=== PATIENT | male | born 1945 | race Caucasian/White ===

== ENCOUNTER 2018-12-16 09:23 | Emergency (ER) | payer OTHER ==
[2018-12-16 09:37] VITALS: TEMP 97.7
--- NOTE | 2018-12-16 10:47 | ED ---
General Adult HPI - General Chief complaint: Arrhythmia/Palpitations Stated complaint: Palpitations Time Seen by Provider: 12/16/18 09:54 Source: patient, RN notes reviewed Mode of arrival: ambulatory Limitations: no limitations - History of Present Illness Initial comments: Patient is a pleasant 73-year-old male presenting to the emergency Department w ith complaints of palpitations. Patient has a difficult time describing his symptoms. Patient states heart feels like it is caused or skipping. Patient states this has occurred since age 18 however has occurred more over the past week. Patient denies any chest discomfort or chest pain. Patient denies any dyspnea except for the fact that he may feel a tiny bit short of breath while the palpitation occurs. Patient states symptoms only last a second and then resolved. Patient states sometimes episodes occur several times and otherwise just once. - Related Data Home Medications Medication Instructions Recorded Confirmed Naproxen 500 mg PO DAILY 12/16/18 12/16/18 Allergies Allergy/AdvReac Type Severity Reaction Status Date / Time No Known Allergies Allergy Verified 12/16/18 09:56 Review of Systems ROS Statement: Those systems with pertinent positive or pertinent negative responses have been documented in the HPI. ROS Other: All systems not noted in ROS Statement are negative. Constitutional: Denies: fever Eyes: Denies: eye pain ENT: Denies: ear pain Respiratory: Denies: cough Cardiovascular: Reports: palpitations. Denies: chest pain Endocrine: Denies: fatigue Gastrointestinal: Denies: abdominal pain Genitourinary: Denies: dysuria Musculoskeletal: Denies: back pain Skin: Denies: rash Neurological: Denies: weakness Past Medical History Past Medical History: Diabetes Mellitus Additional Past Medical History / Comment(s): borderline DM History of Any Multi-Drug Resistant Organisms: None Reported Past Surgical History: Back Surgery Past Psychological History: No Psychological Hx Reported Smoking Status: Former smoker Past Alcohol Use History: None Reported Past Drug Use History: None Reported General Exam Limitations: no limitations General appearance: alert, in no apparent distress Head exam: Present: atraumatic Eye exam: Present: normal appearance, PERRL ENT exam: Present: normal oropharynx Neck exam: Present: normal inspection Respiratory exam: Present: normal lung sounds bilaterally Cardiovascular Exam: Present: regular rate, normal rhythm, other (Occasional extra beats) GI/Abdominal exam: Present: soft. Absent: tenderness Extremities exam: Present: normal inspection. Absent: pedal edema, calf tenderness Neurological exam: Present: alert Psychiatric exam: Present: normal affect, normal mood Skin exam: Present: normal color Course Vital Signs 12/16/18 12/16/18 09:32 10:41 Temperature 97.7 F Pulse Rate 84 Pulse Rate [ 75 Casting Sorter ] Respiratory 18 Rate Blood Pressure 151/85 O2 Sat by Pulse 99 Oximetry - Reevaluation(s) Reevaluation #1: 12/16/18 10:45 Patient does admit to symptoms been present when PVCs are seen on the monitor. EKG Findings - EKG Comments: EKG Findings:: Sinus rhythm at 81. MS 184. QRS 108. QT 366. QTc 425. Normal axis. Normal QRS. No acute ST change. PVCs are present. Medical Decision Making - Medical Decision Making Patient reevaluated and resting comfortably in bed. Patient updated on results and need for follow-up. - Lab Data Result diagrams: 12/16/18 10:02 12/16/18 10:02 Lab Results 12/16/18 12/16/18 12/16/18 Range/Units 10:02 10:02 10:02 WBC 5.4 (3.8-10.6) k/uL RBC 5.19 (4.30-5.90) m/uL Hgb 14.2 (13.0-17.5) gm/dL Hct 43.5 (39.0-53.0) % MCV 83.7 (80.0-100.0) fL MCH 27.4 (25.0-35.0) pg MCHC 32.7 (31.0-37.0) g/dL RDW 15.0 (11.5-15.5) % Plt Count 255 (150-450) k/uL Neutrophils % 78 % Lymphocytes % 13 % Monocytes % 6 % Eosinophils % 1 % Basophils % 1 % Neutrophils # 4.2 (1.3-7.7) k/uL Lymphocytes # 0.7 L (1.0-4.8) k/uL Monocytes # 0.3 (0-1.0) k/uL Eosinophils # 0.1 (0-0.7) k/uL Basophils # 0.0 (0-0.2) k/uL PT 10.9 (9.0-12.0) sec INR 1.0 (<1.2) APTT 24.9 (22.0-30.0) sec Sodium 140 (137-145) mmol/L Potassium 4.5 (3.5-5.1) mmol/L Chloride 105 (98-107) mmol/L Carbon Dioxide 24 (22-30) mmol/L Anion Gap 11 mmol/L BUN 26 H (9-20) mg/dL Creatinine 0.78 (0.66-1.25) mg/dL Est GFR (CKD-EPI)AfAm >90 (>60 ml/min/1.73 sqM) Est GFR (CKD-EPI)NonAf >90 (>60 ml/min/1.73 sqM) Glucose 254 H (74-99) mg/dL Calcium 9.4 (8.4-10.2) mg/dL Magnesium 2.0 (1.6-2.3) mg/dL Total Bilirubin 0.9 (0.2-1.3) mg/dL AST 17 (17-59) U/L ALT 19 L (21-72) U/L Alkaline Phosphatase 118 (38-126) U/L Troponin I (0.000-0.034) ng/mL Total Protein 6.5 (6.3-8.2) g/dL Albumin 3.7 (3.5-5.0) g/dL TSH 2.260 (0.465-4.680) mIU/L Free T4 1.07 (0.78-2.19) ng/dL Free T3 pg/mL 3.8 (2.8-5.3) pg/ml 12/16/18 Range/Units 10:02 WBC (3.8-10.6) k/uL RBC (4.30-5.90) m/uL Hgb (13.0-17.5) gm/dL Hct (39.0-53.0) % MCV (80.0-100.0) fL MCH (25.0-35.0) pg MCHC (31.0-37.0) g/dL RDW (11.5-15.5) % Plt Count (150-450) k/uL Neutrophils % % Lymphocytes % % Monocytes % % Eosinophils % % Basophils % % Neutrophils # (1.3-7.7) k/uL Lymphocytes # (1.0-4.8) k/uL Monocytes # (0-1.0) k/uL Eosinophils # (0-0.7) k/uL Basophils # (0-0.2) k/uL PT (9.0-12.0) sec INR (<1.2) APTT (22.0-30.0) sec Sodium (137-145) mmol/L Potassium (3.5-5.1) mmol/L Chloride (98-107) mmol/L Carbon Dioxide (22-30) mmol/L Anion Gap mmol/L BUN (9-20) mg/dL Creatinine (0.66-1.25) mg/dL Est GFR (CKD-EPI)AfAm (>60 ml/min/1.73 sqM) Est GFR (CKD-EPI)NonAf (>60 ml/min/1.73 sqM) Glucose (74-99) mg/dL Calcium (8.4-10.2) mg/dL Magnesium (1.6-2.3) mg/dL Total Bilirubin (0.2-1.3) mg/dL AST (17-59) U/L ALT (21-72) U/L Alkaline Phosphatase (38-126) U/L Troponin I <0.012 (0.000-0.034) ng/mL Total Protein (6.3-8.2) g/dL Albumin (3.5-5.0) g/dL TSH (0.465-4.680) mIU/L Free T4 (0.78-2.19) ng/dL Free T3 pg/mL (2.8-5.3) pg/ml - Radiology Data Radiology results: image reviewed (Chest x-ray shows no acute process) Disposition Clinical Impression: Ventricular premature beats, Palpitations Disposition: HOME SELF-CARE Condition: Stable Instructions (If sedation given, give patient instructions): Heart Palpitations (ED) Additional Instructions: Please follow-up with primary care physician in the next couple of days for recheck. Return for increased heart rate, pain, difficulty breathing, worsening or changing symptoms or other concerns. Also consider cardiology consult. Is patient prescribed a controlled substance at d/c from ED?: No Referrals: [facility],Clinic [Primary Care Provider] - 1-2 days Scott Cisneros MD [STAFF PHYSICIAN] - 1-2 days Time of Disposition: 12:44
[2018-12-16 11:04] LABS: Basophils % (A) 1 %; Eosinophils # (A) 0.1 k/uL (0-0.7); Eosinophils % (A) 1 %; HCT 43.5 % (39.0-53.0); HGB 14.2 gm/dL (13.0-17.5); Lymphocytes # (A) 0.7 k/uL (1.0-4.8); Lymphocytes % (A) 13 %; MCH 27.4 pg (25.0-35.0); MCHC 32.7 g/dL (31.0-37.0); MCV 83.7 fL (80.0-100.0); Mean Platelet Volume 6.2; Monocytes # (A) 0.3 k/uL (0-1.0); Monocytes % (A) 6 %; Neutrophils # (A) 4.2 k/uL (1.3-7.7); Neutrophils % (A) 78 %; Platelet Count 255 k/uL (150-450); RBC 5.19 m/uL (4.30-5.90); WBC 5.4 k/uL (3.8-10.6)
[2018-12-16 11:13] LABS: ALT 19 U/L (21-72); AST 17 U/L (17-59); Albumin 3.7 g/dL (3.5-5.0); Alkaline Phosphatase 118 U/L (38-126); Anion Gap 11 mmol/L; Blood Urea Nitrogen 26 mg/dL (9-20); Calcium 9.4 mg/dL (8.4-10.2); Carbon Dioxide 24 mmol/L (22-30); Chloride 105 mmol/L (98-107); Glucose 254 mg/dL (74-99); Potassium 4.5 mmol/L (3.5-5.1); Sodium 140 mmol/L (137-145); Total Bilirubin 0.9 mg/dL (0.2-1.3); Total Protein 6.5 g/dL (6.3-8.2)
[2018-12-16 11:29] LABS: Partial Thromboplastin Time 24.9 sec (22.0-30.0); Prothrombin Time 10.9 sec (9.0-12.0); T4, Free (Free Thyroxine) 1.07 ng/dL (0.78-2.19)
--- NOTE | 2018-12-16 12:27 | XR ---
EXAMINATION TYPE: XR chest 2V DATE OF EXAM: 12/16/2018 COMPARISON: None HISTORY: Shortness of breath TECHNIQUE: Frontal and lateral views of the chest are obtained. FINDINGS: Scattered senescent parenchymal changes noted. Hyperinflation compatible with COPD. No evidence for infiltrate. No evidence for atelectasis. Heart size is stable. Mediastinal structures are stable and grossly unremarkable. No evidence for hilar prominence. Degenerative changes dorsal spine. IMPRESSION: 1. No evidence for acute pulmonary disease.
[2018-12-16 13:16] VITALS: RESP 18
[2018-12-16 13:18] VITALS: BP 134/75; PULSE 84
== END 2018-12-16 13:18 | disposition home or self-care (01) ==
LOC: EC 09:23
DX: I49.3 Ventricular premature depolarization (principal); Z87.891 Personal history of nicotine dependence; Z79.1 Long term (current) use of non-steroidal anti-inflammatories (NSAID)
CPT/HCPCS: 36415; 71046; 80053; 83735; 84439; 84443; 84481; 84484; 85025; 85610; 85730; 99285

== ENCOUNTER → 2021-04-15 | Outpatient (CLI) | payer OTHER ==
--- NOTE | 2021-04-15 13:19 | XR ---
EXAMINATION TYPE: XR bone survey complete DATE OF EXAM: 04/15/2021 COMPARISON: NONE HISTORY: 76-year-old male D64.9, anemia and low iron, M12.9 arthritis TECHNIQUE: 18 views. FINDINGS: Chest: Advanced degenerative change in both shoulders. Heart normal size. Mild tortuosity/ectasia of the thoracic aorta. No consolidation or pleural effusion. No lytic lesion of the clavicles or scapula is no evident lytic lesion of the ribs. Cervical spine: Moderate to advanced disc/endplate degenerative change C5-C7 levels with anterior end plate spondylosis and facet and uncovertebral joint arthropathy. Degenerative grade 1 anterolisthesis C3-C4. The predental space widening or prevertebral soft tissue swelling. No lytic osseous lesion is seen. Bilateral humerus: Severe degenerative change bilateral glenohumeral joints. No discrete lytic lesion . Calvarium: Numerous scattered small lucencies on the superior portion of the calvarium likely promine nt arachnoid granulations. No suspicious lytic lesion within the mandible. Thoracic spine: 12 rib-bearing thoracic vertebral bodies. All pedicles are visualized. [facility] in the mi d thoracic spine. Grade 1 anterolisthesis level in the mid thoracic spine. Vertebral body heights are preserved. No lytic lesion identified. Lumbar spine: Advanced hypertrophic facet arthropathy. Vertebral body heights are preserved and align ment is maintained. Moderate to advanced degenerative disc disease throughout. Pelvis: Uexn-rd-evulprtd axial joint space narrowing left hip and mild at the right hip. SI joints ap pear symmetric and intact as does the pubic symphysis. No lytic lesion identified. Bilateral femurs: No suspicious lytic lesion or endosteal scalloping. Medial compartment degenerative change of both hips. IMPRESSION: 1. End-stage bilateral glenohumeral joint OA. [id number]-[id number] bilateral hip OA. Moderate to advanced spondylotic change lumbar spine. 2. Numerous small lucencies throughout the superior calvarium most likely prominent arachnoid granula tions. No suspicious lytic lesion seen elsewhere on the bone survey.
== END | disposition home or self-care (01) ==
LOC: RADXRMAIN 10:34
PROVIDERS: ATTEND Internal Medicine Hematology & Oncology
DX: M19.012 Primary osteoarthritis, left shoulder (principal); M19.011 Primary osteoarthritis, right shoulder; M47.816 Spondylosis without myelopathy or radiculopathy, lumbar region; M16.0 Bilateral primary osteoarthritis of hip; D64.9 Anemia, unspecified
CPT/HCPCS: 77075

== ENCOUNTER 2024-08-20 09:36 | Emergency (ER) | payer OTHER, MEDICARE ==
[2024-08-20 09:42] VITALS: TEMP 97.9
--- NOTE | 2024-08-20 10:53 | ED ---
General Adult HPI - General Chief complaint: Recheck/Abnormal Lab/Rx Stated complaint: both leg redness/aches Time Seen by Provider: 08/20/24 10:43 Source: patient, RN notes reviewed Mode of arrival: ambulatory Limitations: no limitations - History of Present Illness Initial comments: 79-year-old male with history of CAD and CHF presenting to the ER with chief complaint of bilateral leg redness x 2 weeks. Patient reports he began to notice his right lower leg was becoming red, swollen, and tender about 2 weeks ago that has been increasing in severity. A few days ago, he noticed same symptoms in his left lower leg. He describes a sensation as "a really bad sunburn". He does take Lasix daily for leg swelling however admits his legs are more swollen than usual. Denies chest pain or shortness of breath. He was seen at the [place] today who sent him to the ER to rule out DVTs. Patient is on Xarelto. Denies recent surgeries or travel. He is a non-smoker. Denies history of blood clots. - Related Data Home Medications Medication Instructions Recorded Confirmed Naproxen 500 mg PO DAILY 12/16/18 12/16/18 Previous Rx's Medication Instructions Recorded Cephalexin [Keflex] 500 mg PO Q6HR 7 Days #28 cap 08/20/24 Potassium Chloride ER [K-Dur 10] 10 meq PO DAILY 5 Days #5 tab 08/20/24 Allergies Allergy/AdvReac Type Severity Reaction Status Date / Time No Known Allergies Allergy Verified 08/20/24 09:44 Review of Systems ROS Statement: Those systems with pertinent positive or pertinent negative responses have been documented in the HPI. ROS Other: All systems not noted in ROS Statement are negative. Past Medical History Past Medical History: Diabetes Mellitus Additional Past Medical History / Comment(s): borderline DM History of Any Multi-Drug Resistant Organisms: None Reported Past Surgical History: Back Surgery Past Psychological History: No Psychological Hx Reported Smoking Status: Never smoker Past Alcohol Use History: None Reported Past Drug Use History: None Reported General Exam Limitations: no limitations General appearance: alert, in no apparent distress Head exam: Present: atraumatic, normocephalic, normal inspection Respiratory exam: Present: normal lung sounds bilaterally. Absent: respiratory distress, wheezes, rales, rhonchi, stridor Cardiovascular Exam: Present: regular rate, normal rhythm, normal heart sounds. Absent: systolic murmur, diastolic murmur, rubs, gallop, clicks Extremities exam: Present: full ROM, normal capillary refill. Absent: normal inspection (Bilateral lower legs erythematous, warm, and tender to touch from mid lower leg to distal lower leg. Full sensation and DP pulses bilaterally), tenderness, pedal edema, joint swelling, calf tenderness Neurological exam: Present: alert, oriented X3 Psychiatric exam: Present: normal affect, normal mood Skin exam: Present: warm, dry, intact, normal color Course Vital Signs 08/20/24 08/20/24 08/20/24 09:37 10:45 12:20 Temperature 97.9 F Pulse Rate 74 64 66 Respiratory 16 18 18 Rate Blood Pressure 106/77 101/60 100/68 O2 Sat by Pulse 93 L 97 100 Oximetry 08/20/24 14:06 Temperature Pulse Rate 68 Respiratory 16 Rate Blood Pressure 107/70 O2 Sat by Pulse 94 L Oximetry EKG Findings - EKG Results: EKG: interpreted by MARK ANTHONY (EKG reveals normal sinus rhythm with no acute ST changes. Ventricular rate 62 bpm, MN interval 261, QRS duration 129, QT/QTc 441/447) Medical Decision Making - Medical Decision Making Was pt. sent in by a medical professional or institution (, PA, DATABASE MANAGEMENT SYSTEM SPECIALIST, urgent care, hospital, or penitentiary...) When possible be specific @ -Sent from [place] to rule out DVTs Did you speak to anyone other than the patient for history (EMS, parent, family, police, friend...)? What history was obtained from this source @ -No Did you review nursing and triage notes (agree or disagree)? Why? @ -I reviewed and agree with nursing and triage notes Were old charts reviewed (outside hosp., previous admission, EMS record, old EKG, old radiological studies, urgent care reports/EKG's, penitentiary records)? Report findings @ -No old charts were reviewed Differential Diagnosis (chest pain, altered mental status, abdominal pain women, abdominal pain men, vaginal bleeding, weakness, fever, dyspnea, syncope, headache, dizziness, GI bleed, back pain, seizure, CVA, palpatations, mental hea lth, musculoskeletal)? @ -Differential Musculoskeletal Muscular strain, contusion, ligament sprain, fracture, arthritis, septic arthritis, bursitis, cellulitis, muscle spasm, nerve compression, DVT, arterial occlusion, herpes zoster, electrolyte abnormality, tumor.... This is not meant to be in all inclusive list EKG interpreted by me (3pts min.). @ -None X-rays interpreted by me (1pt min.). @ -Chest x-ray reveals no acute process CT interpreted by me (1pt min.). @ -None done U/S interpreted by me (1pt. min.). @ -Ultrasound bilateral lower extremities negative for DVT What testing was considered but not performed or refused? (CT, X-rays, U/S, labs)? Why? @ -None What meds were considered but not given or refused? Why? @ -None Did you discuss the management of the patient with other professionals (professionals i.e. , PA, DATABASE MANAGEMENT SYSTEM SPECIALIST, lab, RT, psych nurse, social work professor, drycleaner, teacher, student liaison officer, trimming caser)? Give summary @ -No Was smoking cessation discussed for >3mins.? @ -No Was critical care preformed (if so, how long)? @ -No Were there social determinants of health that impacted care today? How? (Homelessness, low income, unemployed, alcoholism, drug addiction, transportati on, low edu. Level, literacy, decrease access to med. care, long term, rehab)? @ -No Was there de-escalation of care discussed even if they declined (Discuss DNR or withdrawal of care, Hospice)? DNR status @ -No What co-morbidities impacted this encounter? (DM, HTN, Smoking, COPD, CAD, Cancer, CVA, ARF, Chemo, Hep., AIDS, mental health diagnosis, sleep apnea, morbid obesity)? @ -None Was patient admitted / discharged? Hospital course, mention meds given and route, prescriptions, significant lab abnormalities, going to OR and other pertinent info. @ -Discharge. This is a 79-year-old male presenting with bilateral leg erythema x 2 weeks. Vital signs within acceptable limits. Physical examination remarkable for bilateral erythema, warmth, and edema bilaterally. Neurovascularly intact. Lab work remarkable for BNP 8230, hypokalemia 2.9, and CO2 19. Chest x-ray reveals no acute process. Ultrasound bilateral lower extremities negative for DVT. Discussed results with patient. Discussed there is no sign of acute heart failure exacerbation or DVTs. Patient states he would like to be discharged. We will trial Keflex for bacterial coverage for bilateral leg erythema and start patient on potassium supplements. Advise close follow-up with PCP in 1 to 3 days for reevaluation. Return precautions discussed and patient is agreeable to plan. Case was discussed with my ED attending Dr. Webb. Undiagnosed new problem with uncertain prognosis? @ -No Drug Therapy requiring intensive monitoring for toxicity (Heparin, Nitro, Insulin, Cardizem)? @ -No Were any procedures done? @ -No Diagnosis/symptom? @ -Bilateral leg erythema, hypokalemia Acute, or Chronic, or Acute on Chronic? @ -Acute Uncomplicated (without systemic symptoms) or Complicated (systemic symptoms)? @ -Uncomplicated Side effects of treatment? @ -No Exacerbation, Progression, or Severe Exacerbation? @ -No Poses a threat to life or bodily function? How? (Chest pain, USA, NC, pneumonia, PE, COPD, DKA, ARF, appy, cholecystitis, CVA, Diverticulitis, Homicidal, Suicidal, threat to staff... and all critical care pts) @ -No - Lab Data Result diagrams: 08/20/24 10:52 08/20/24 10:52 Lab Results 08/20/24 08/20/24 08/20/24 Range/Units 10:52 10:52 10:52 WBC 5.8 (3.8-10.6) k/uL RBC 4.44 (4.30-5.90) m/uL Hgb 11.5 L (13.0-17.5) gm/dL Hct 36.5 L (39.0-53.0) % MCV 82.3 (80.0-100.0) fL MCH 25.9 (25.0-35.0) pg MCHC 31.5 (31.0-37.0) g/dL RDW 16.6 H (11.5-15.5) % Plt Count 161 (150-450) k/uL MPV 8.6 Neutrophils % 84 % Lymphocytes % 11 % Monocytes % 3 % Eosinophils % 1 % Basophils % 0 % Neutrophils # 4.9 (1.3-7.7) k/uL Lymphocytes # 0.7 L (1.0-4.8) k/uL Monocytes # 0.2 (0-1.0) k/uL Eosinophils # 0.0 (0-0.7) k/uL Basophils # 0.0 (0-0.2) k/uL Hypochromasia Moderate Poikilocytosis Slight Anisocytosis Slight PT 13.1 H (10.0-12.5) sec INR 1.2 H (<1.2) APTT 26.2 (22.0-30.0) sec Sodium 135 L (137-145) mmol/L Potassium 2.9 L (3.5-5.1) mmol/L Chloride 107 (98-107) mmol/L Carbon Dioxide 19 L (22-30) mmol/L Anion Gap 9 mmol/L BUN 17 (9-20) mg/dL Creatinine 1.14 (0.66-1.25) mg/dL Est GFR (CKD-EPI)AfAm 71 (>60 ml/min/1.73 sqM) Est GFR (CKD-EPI)NonAf 62 (>60 ml/min/1.73 sqM) Glucose 118 H (74-99) mg/dL Calcium 7.2 L (8.4-10.2) mg/dL Total Bilirubin 0.8 (0.2-1.3) mg/dL AST 30 (17-59) U/L ALT 8 (4-49) U/L Alkaline Phosphatase 110 (38-126) U/L Troponin I (0.000-0.034) ng/mL NT-Pro-B Natriuret Pep 8230 pg/mL Total Protein 5.5 L (6.3-8.2) g/dL Albumin 2.8 L (3.5-5.0) g/dL 08/20/24 Range/Units 10:52 WBC (3.8-10.6) k/uL RBC (4.30-5.90) m/uL Hgb (13.0-17.5) gm/dL Hct (39.0-53.0) % MCV (80.0-100.0) fL MCH (25.0-35.0) pg MCHC (31.0-37.0) g/dL RDW (11.5-15.5) % Plt Count (150-450) k/uL MPV Neutrophils % % Lymphocytes % % Monocytes % % Eosinophils % % Basophils % % Neutrophils # (1.3-7.7) k/uL Lymphocytes # (1.0-4.8) k/uL Monocytes # (0-1.0) k/uL Eosinophils # (0-0.7) k/uL Basophils # (0-0.2) k/uL Hypochromasia Poikilocytosis Anisocytosis PT (10.0-12.5) sec INR (<1.2) APTT (22.0-30.0) sec Sodium (137-145) mmol/L Potassium (3.5-5.1) mmol/L Chloride (98-107) mmol/L Carbon Dioxide (22-30) mmol/L Anion Gap mmol/L BUN (9-20) mg/dL Creatinine (0.66-1.25) mg/dL Est GFR (CKD-EPI)AfAm (>60 ml/min/1.73 sqM) Est GFR (CKD-EPI)NonAf (>60 ml/min/1.73 sqM) Glucose (74-99) mg/dL Calcium (8.4-10.2) mg/dL Total Bilirubin (0.2-1.3) mg/dL AST (17-59) U/L ALT (4-49) U/L Alkaline Phosphatase (38-126) U/L Troponin I <0.012 (0.000-0.034) ng/mL NT-Pro-B Natriuret Pep pg/mL Total Protein (6.3-8.2) g/dL Albumin (3.5-5.0) g/dL Disposition Clinical Impression: Discoloration of skin of lower leg, Hypokalemia Disposition: HOME SELF-CARE Condition: Stable Additional Instructions: Take Keflex and potassium supplement daily as directed. Follow-up with PCP in 1 to 3 days for reevaluation. Please return to the Emergency Department if symptoms worsen or any other concerns. Prescriptions: Potassium Chloride ER [K-Dur 10] 10 meq PO DAILY 5 Days #5 tab Cephalexin [Keflex] 500 mg PO Q6HR 7 Days #28 cap Is patient prescribed a controlled substance at d/c from ED?: No Referrals: [facility],Clinic [Primary Care Provider] - 1-2 days Time of Disposition: 13:20
[2024-08-20 10:59] LABS: Anisocytosis Slight; Basophils % (A) 0 %; Eosinophils % (A) 1 %; HCT 36.5 % (39.0-53.0); HGB 11.5 gm/dL (13.0-17.5); Hypochromasia Moderate; Lymphocytes # (A) 0.7 k/uL (1.0-4.8); Lymphocytes % (A) 11 %; MCH 25.9 pg (25.0-35.0); MCHC 31.5 g/dL (31.0-37.0); MCV 82.3 fL (80.0-100.0); Mean Platelet Volume 8.6; Monocytes # (A) 0.2 k/uL (0-1.0); Monocytes % (A) 3 %; Neutrophils # (A) 4.9 k/uL (1.3-7.7); Neutrophils % (A) 84 %; Platelet Count 161 k/uL (150-450); Poikilocytosis Slight; RBC 4.44 m/uL (4.30-5.90); RDW 16.6 % (11.5-15.5); WBC 5.8 k/uL (3.8-10.6)
[2024-08-20 11:08] LABS: INR 1.2 (<1.2); Partial Thromboplastin Time 26.2 sec (22.0-30.0); Prothrombin Time 13.1 sec (10.0-12.5)
[2024-08-20 11:32] LABS: ALT 8 U/L (4-49); AST 30 U/L (17-59); African American GFR (CKD) 71 (>60 ml/min/1.73 sqM); Albumin 2.8 g/dL (3.5-5.0); Alkaline Phosphatase 110 U/L (38-126); Anion Gap 9 mmol/L; Blood Urea Nitrogen 17 mg/dL (9-20); Calcium 7.2 mg/dL (8.4-10.2); Carbon Dioxide 19 mmol/L (22-30); Chloride 107 mmol/L (98-107); Glucose 118 mg/dL (74-99); Non-African American GFR(CKD) 62 (>60 ml/min/1.73 sqM); Potassium 2.9 mmol/L (3.5-5.1); Sodium 135 mmol/L (137-145); Total Bilirubin 0.8 mg/dL (0.2-1.3); Total Protein 5.5 g/dL (6.3-8.2)
[2024-08-20 11:39] LABS: NT-Pro-B-Type Natriuretic Pept 8230 pg/mL
--- NOTE | 2024-08-20 11:40 | US ---
EXAMINATION TYPE: US venous doppler duplex LE DATE OF EXAM: 08/20/2024 10:30 AM COMPARISON: NONE CLINICAL INDICATION: Male, 79 years old with history of b/l leg erythema/edema; edema, Pain, Swelling TECHNIQUE: The lower extremity deep venous system is examined utilizing real time linear array sonog srinivasan with graded compression, color doppler sonography, and spectral doppler. SIDE PERFORMED: Bilateral FINDINGS: VESSELS IMAGED: Common Femoral Vein Deep Femoral Vein Greater Saphenous Vein * Femoral Vein Popliteal Vein Small Saphenous Vein * Proximal Calf Veins (* superficial vessels) Right Leg: Negative for DVT, Color Doppler imaging shows patency of the vessels. Spectral waveforms are within normal limits. Left Leg: Negative for DVT, Color Doppler imaging shows patency of the vessels. Spectral waveforms a re within normal limits. exam limited by edema. poor visualization of calf veins IMPRESSION: No ultrasound evidence for deep venous thrombosis. [facility], , 08/20/2024 11:38 AM
--- NOTE | 2024-08-20 12:28 | XR ---
EXAMINATION TYPE: XR chest 2V DATE OF EXAM: 08/20/2024 12:16 PM COMPARISON: Chest radiographs from 12/16/2018 TECHNIQUE: XR chest 2V Frontal and lateral views of the chest. CLINICAL INDICATION:Male, 79 years old with history of b/l leg edema; FINDINGS: Lungs/Pleura: There is no evidence of pleural effusion, focal consolidation, or pneumothorax. Pulmonary vascularity: Unremarkable. Heart/mediastinum: Cardiomediastinal silhouette is unremarkable. Post-CABG changes. Musculoskeletal: No acute osseous pathology. Median sternotomy wires and clips. Advanced bilateral sh oulder arthropathy. IMPRESSION: No acute cardiopulmonary disease/process. [facility], , 08/20/2024 12:25 PM
[2024-08-20 14:06] VITALS: BP 107/70; PULSE 68; RESP 16
== END 2024-08-20 14:10 | disposition home or self-care (01) ==
LOC: EC 09:36
DX: R23.8 Other skin changes (principal); E87.6 Hypokalemia
CPT/HCPCS: 36415; 71046; 80053; 83880; 84484; 85025; 85610; 85730; 93005; 93970; 99284